=== PATIENT | female | born 1960 | race African-American/Black ===

== ENCOUNTER 2017-03-27 11:52 | Emergency (ER) | payer BC ==
--- NOTE | 2017-03-27 12:53 | RAD ---
RIGHT SHOULDER 3 VIEWS: HISTORY: Right shoulder pain. FINDINGS: No comparison. Acromioclavicular and glenohumeral alignment are maintained. Dystrophic calcificatio n projects over the distal rotator cuff. There is no acute fracture or dislocation. IMPRESSION: Calcific tendinitis right shoulder. POS: [facility]
[2017-03-27] MEDS ORDERED: HYDROcodone/Acetaminophen 5/325 mg Tablet ONE (13:46)
== END 2017-03-27 13:58 | disposition home or self-care (01) ==
LOC: ERS 11:52
DX: M75.31 Calcific tendinitis of right shoulder (principal); E78.5 Hyperlipidemia, unspecified; I10 Essential (primary) hypertension; Z79.899 Other long term (current) drug therapy

== ENCOUNTER 2018-12-05 14:11 | Outpatient (CLI) | payer BC ==
--- NOTE | 2018-12-05 15:39 | MRI ---
MRI lumbar spine noncontrast HISTORY: Low back pain with right leg radiculopathy. FINDINGS: Radiographs are not available for direct correlation, therefore the lowest lumbar type vert ebra will be designated as L5, with the remainder numbering accordingly. The conus medullaris has normal appearance. Desiccation of all of the intervertebral discs. Vertebral body heights are maintai orion. Mild discogenic endplate changes within the bone marrow. T12-L1, L1-2, L2-3, L3-4: Minimal disc bulge. Mild osteophytosis of the facets. The central canal and neural foramina remain patent. L4-5: Disc space narrowing. Diffuse posterior disc bulge with more prominent left lateral protrusion. Degenerative changes of the facets with joint fluid. Left lateral disc protrusion extends into the neural foramen. Resultant moderate foraminal stenosis. Mild stenosis of the right neural foramen. The joleen sac remains patent. L5-S1: Minimal disc bulge. Thecal sac is patent. Osteophytosis of the facets. Far left lateral disc p rotrusion into the neural foramen with moderate stenosis. IMPRESSION: Far left lateral protrusions of the lowest 2 discs. Clinical correlation regarding the le ft L4 and L5 dermatomes is required. Otherwise mild degenerative changes throughout the lumbar spine as detailed above.
== END 2018-12-05 14:12 | disposition home or self-care (01) ==
LOC: BICMRI 14:11
PROVIDERS: ATTEND Family Medicine
DX: M51.16 Intervertebral disc disorders with radiculopathy, lumbar region (principal); M47.26 Other spondylosis with radiculopathy, lumbar region
CPT/HCPCS: 72148

== ENCOUNTER 2019-03-08 12:38 | Outpatient (CLI) | payer OTHER ==
--- NOTE | 2019-03-08 13:01 | RAD ---
XR Hip Rt 2-3 View INDICATION: Right hip pain COMPARISON: None FINDINGS: Bones: No acute osseous abnormality. Bone mineralization appears within normal limits. Hip joint: There is mild right hip osteoarthrosis consisting of subchondral sclerosis of the right ac etabulum as well as marginal osteophytes affecting the right femoral head. SI joints and symphysis pubis: Radiographically normal. Intrapelvic contents: Visualized bowel gas pattern is within normal limits. Surrounding soft tissues: Radiographically normal. IMPRESSION: 1. No acute osseous abnormality. 2. Mild right hip osteoarthrosis
== END 2019-03-08 12:39 | disposition home or self-care (01) ==
LOC: TBSIIMAG 12:38
PROVIDERS: ATTEND Neurological Surgery
DX: M25.551 Pain in right hip (principal); M16.11 Unilateral primary osteoarthritis, right hip

== ENCOUNTER 2020-03-17 13:13 | Emergency (ER) | payer SELFPAY ==
[2020-03-17 15:33] LABS: #Basophils 0.1 thou/uL (0.0-0.2); #Eosinphils 0.2 thou/uL (0.0-0.7); #Lymphocytes 2.4 thou/uL (1.20-3.40); #Monocytes 0.6 thou/uL (0.11-0.59); %Basophils 2.3 % (0.0-1.0); %Eosinophils 3.3 % (0.0-10.0); %Lymphocytes 38.1 % (21.0-51.0); %Monocytes 8.7 % (0.0-10.0); %Neutrophils 47.6 % (42.0-75.0); Hemoglobin 13.9 g/dL (12.0-16.0); Mean Corpuscular HGB CONC 32.4 g/dL (32.0-36.0); Mean Corpuscular Hemoglobin 30.5 pg (27.0-31.0); Mean Platelet Volume 8.5 fL (7.4-10.4); Platelet Count 266 thou/uL (130-400); RBC Distribution Width 11.8 % (11.5-14.5); Red Blood Cell (RBC) Count 4.57 mill/uL (4.20-5.40); White Blood Cell (WBC) Count 6.4 thou/uL (4.8-10.8)
[2020-03-17 15:56] LABS: ALT (SGPT) 13 U/L (8-55); AST (SGOT) 13 U/L (5-34); Albumin 4.4 g/dL (3.5-5.0); Alkaline Phosphatase 95 U/L (40-110); Anion Gap 14 mmol/L (10-20); BUN (Urea Nitrogen) 12 mg/dL (9.8-20.1); Bilirubin, Total 0.8 mg/dL (0.2-1.2); CRP (Inflammatory) Less than 0.50 mg/dL (= or < 0.5); Calc. Creatinine Clearance 0 mL/min (70-130); Calcium 10.3 mg/dL (7.8-10.44); Carbon Dioxide 29 mmol/L (22-29); Chloride 100 mmol/L (98-107); Globulin 3.6 g/dL (2.4-3.5); Glucose 109 mg/dL (70-105); Potassium 4.3 mmol/L (3.5-5.1); Sodium 139 mmol/L (136-145)
== END 2020-03-17 17:14 | disposition home or self-care (01) ==
LOC: ERS 13:13
DX: E11.42 Type 2 diabetes mellitus with diabetic polyneuropathy (principal); E78.5 Hyperlipidemia, unspecified; I10 Essential (primary) hypertension; E78.00 Pure hypercholesterolemia, unspecified; Z87.891 Personal history of nicotine dependence; Z79.899 Other long term (current) drug therapy; Z79.84 Long term (current) use of oral hypoglycemic drugs
CPT/HCPCS: 36415; 80053; 85025; 85652; 86140; 99283

== ENCOUNTER 2020-12-15 08:15 | Emergency (ER) | payer SELFPAY ==
[2020-12-15 14:27] LABS: SARS-CoV-2 PCR by NAA Not Detected (NotDetected)
== END 2020-12-15 10:06 | disposition home or self-care (01) ==
LOC: ERS 08:15
DX: U07.1 COVID-19 (principal); E10.9 Type 1 diabetes mellitus without complications; E78.5 Hyperlipidemia, unspecified; E78.00 Pure hypercholesterolemia, unspecified; I10 Essential (primary) hypertension; Z87.891 Personal history of nicotine dependence
CPT/HCPCS: 71045; U0003; U0005

== ENCOUNTER 2023-04-15 09:20 | Outpatient (CLI) | payer OTHER | END 2023-04-15 09:21 | disposition home or self-care (01) | LOC: BICMAMMO 09:20 | PROVIDERS: ATTEND Family Medicine | DX: Z12.31 Encounter for screening mammogram for malignant neoplasm of breast (principal) | CPT/HCPCS: 77063; 77067 ==